=== PATIENT | male | born 1990 | race Caucasian/White ===

== ENCOUNTER 2024-11-15 19:00 | Emergency (ER) | payer OTHER, SELFPAY ==
[2024-11-15 19:15] VITALS: BP 135/82; PULSE 96; RESP 20; TEMP 36.7; O2SAT 98; BMI 29.1
--- NOTE | 2024-11-15 21:10 | PC.NURSE ---
BED AND BREAKFAST OPERATOR note: Alerted by admitting that patient's family brought alcohol into the facilities. Security alerted and made aware. boiler reliner Erica Lemon made aware.
[2024-11-16 01:15] VITALS: BP 120/85; PULSE 68; RESP 10; O2SAT 99
--- NOTE | 2024-11-16 01:26 | ED_ITS ---
HPI - General Adult General Chief complaint: Toxicology Problem Stated complaint: Really bad acholic withdrawals Time Seen by Provider: 11/16/24 01:12 Source: patient Mode of arrival: Wheelchair History of Present Illness HPI narrative: 34-year-old male has upper middle abdominal epigastric area discomfort, regular alcohol use, last drink 2 weeks ago, had concerns that he might be having alcohol withdrawal. No shakiness. No shakiness, no seizure activity. No fevers or chills or diaphoresis. He is not having nausea or vomiting. No black or red stools. No prior endoscopies. No history of known ulcers. No history of known pancreatitis. No blunt injury, trauma, new activities. He has not feel feverish. No painful or frequent urination. Denies chest pain or shortness of breath. He is planning on talking to [facility] alcohol rehab Services on Friday tomorrow. He desires to stop drinking alcohol. Related Data Previous Rx's ?Medication ?Instructions ?Recorded omeprazole 20 mg capsule,delayed 20 mg PO DAILY upper abdominal 11/16/24 release pain 30 days #30 caps Allergies Allergy/AdvReac Type Severity Reaction Status Date / Time No Known Drug Allergies Allergy Verified 11/15/24 19:14 Patient History tobacco type: smokeless tobacco Alcohol type: beer and hard liquor Exam Narrative Exam Narrative: GENERAL: Well-developed patient, in mild distress. HEAD: Atraumatic. Normocephalic. EYES: Pupils equal round and reactive. Extraocular motions intact. No scleral icterus. No injection or drainage. ENT: Nose without bleeding, purulent drainage. Throat without erythema, tonsillar hypertrophy or exudate. Airway patent. NECK: Trachea midline. Non tender CARDIOVASCULAR: Regular rate and rhythm without murmurs, gallops, or rubs. RESPIRATORY: Clear to auscultation. Breath sounds equal bilaterally. No wheezes, rales, or rhonchi. GASTROINTESTINAL: Abdomen soft, non-tender, nondistended. EXTREMITIES: No edema or joint tenderness. BACK: Nontender without deformity or crepitance. No flank tenderness. NEURO: AOx3. Motor functions grossly nonfocal. SKIN: No rash or erythema of visible areas Initial Vital Signs Initial Vital Signs: Vital Signs Temperature 98.0 F 11/15/24 19:15 Pulse Rate 96 H 11/15/24 19:15 Respiratory Rate 20 11/15/24 19:15 Blood Pressure 135/82 11/15/24 19:15 Pulse Oximetry 98 11/15/24 19:15 Oxygen Delivery Method Room Air 11/15/24 19:15 Course Orders Ordered: ED Orders 11/16/24 01:12 Consult to SURGICAL NURSE - Sonar Subsystem Equipment Operator Urgent 11/16/24 02:17 Complete Blood Count AUTO DIFF Stat Comprehensive Metabolic Panel Stat Ethanol (ETOH) Stat Hepatic (Liver) Panel Stat Magnesium Stat Urine Drug Screen, Rapid Stat Discontinued Medications Famotidine (Famotidine 20 Mg/2 Ml Vial) 20 mg IV NOW ANUP Last Admin: 11/16/24 02:08 Dose: 20 mg Documented By: LEÓN Thiamine HCl 100 mg/ Sodium (Chloride) 101 mls @ 404 mls/hr IV NOW ONE Stop: 11/16/24 01:15 Last Infusion: 11/16/24 02:49 Dose: Infused Documented By: Admin: 11/16/24 02:25 Dose: 404 mls/hr Documented By: LEÓN Sodium Chloride (Normal Saline 0.9%) 1,000 mls @ 1,000 mls/hr IV BOLUS ONE Stop: 11/16/24 02:14 Last Infusion: 11/16/24 03:03 Dose: Infused Documented By: Admin: 11/16/24 02:01 Dose: 1,000 mls/hr Documented By: LEÓN Thiamine HCl 200 mg/ Sodium (Chloride) 102 mls @ 408 mls/hr IV NOW ONE Stop: 11/16/24 02:23 Last Admin: 11/16/24 02:27 Dose: Not Given Documented By: LEÓN Vital Signs Vital signs: Vital Signs - 8 hr 11/16/24 01:15 11/16/24 01:15 11/16/24 01:30 Pulse Rate 68 Respiratory Rate 10 L Blood Pressure 120/85 127/91 H Pulse Oximetry 99 Oxygen Delivery Method 11/16/24 01:30 11/16/24 02:15 11/16/24 02:16 Pulse Rate 80 63 Respiratory Rate 16 14 Blood Pressure 113/75 Pulse Oximetry 98 98 Oxygen Delivery Method 11/16/24 02:16 11/16/24 02:30 11/16/24 02:30 Pulse Rate 59 L 64 Respiratory Rate 12 15 Blood Pressure 121/82 Pulse Oximetry 97 99 Oxygen Delivery Method Room Air Room Air Medical Decision Making Lab Data Lab results reviewed: Yes I reviewed the patient's lab results. Lab results narrative: White blood cell count 7300, hemoglobin 16.5, platelets adequate. Glucose 90. Normal renal function. Normal serum CO2. Normal electrolytes. Normal liver functions. Urine tox screen negative. Ethanol negative. 11/16/24 02:17 11/16/24 02:17 Labs: Lab Results 11/16/24 Range/Units 02:17 WBC 7.3 (4.5-11.0) X10^3/uL RBC 5.27 (4.5-5.9) X10^6/uL Hgb 16.5 (13.5-17.5) g/dL Hct 46.8 (41-53) % MCV 88.8 (80-100) fL MCH 31.4 (26-34) PG MCHC 35.3 (30-36) % RDW 13.4 (11.6-14.8) % Plt Count 272 (150-400) X10^3/uL Neut % (Auto) 62.8 (50-75) % Lymph % (Auto) 25.7 (25-40) % Alcorn % (Auto) 8.9 (3-14) % Eos % (Auto) 1.7 L (2-4) % Baso % (Auto) 0.9 (0-2) % Neut # (Auto) 4600 (5092-4726) /uL Lymph # (Auto) 1900 (8498-2252) /uL Alcorn # (Auto) 600 (0-900) /uL Eos # (Auto) 100 (0-450) /uL Baso # (Auto) 100 (0-100) /uL Sodium 138 (137-145) mmol/L Potassium 3.8 (3.4-5.1) mmol/L Chloride 104 (98-107) mmol/L Carbon Dioxide 24 (22-32) mmol/L BUN 12 (9-20) mg/dL Creatinine 0.81 (0.66-1.25) mg/dL Estimated GFR > 60 (>60) mL/min BUN/Creatinine Ratio 14.8 (6-22) Glucose 90 (70-99) mg/dL Calcium 9.6 (8.4-10.2) mg/dL Magnesium 2.1 (1.6-2.3) mg/dL Total Bilirubin 0.8 (0.2-1.3) mg/dL Conjugated Bilirubin 0.0 (0.0-0.3) md/dL Unconjugated Bilirubin 0.5 (0.0-1.1) mg/dL AST 28 (17-59) IU/L ALT 28 (<50) IU/L Alkaline Phosphatase 53 (38-126) U/L Total Protein 7.5 (6.3-8.2) g/dL Albumin 4.9 (3.5-5.0) g/dL Globulin 2.6 (1.7-4.1) g/dL Albumin/Globulin Ratio 1.9 (1.0-2.8) U Opiates 300ng/mL cut Negative (Negative) Ur Oxycodone Screen Negative (Negative) Urine Methadone Screen Negative (Negative) Ur Barbiturates Screen Negative (Negative) U Tricyclic Antidepress Negative (Negative) Ur Phencyclidine Scrn Negative (Negative) Ur Amphetamines Screen Negative (Negative) U Methamphetamines Scrn Negative (Negative) Ur MDMA Scrn (Ecstasy) Negative (Negative) U Benzodiazepines Scrn Negative (Negative) Urine Cocaine Screen Negative (Negative) U Marijuana (THC) Screen Negative (Negative) Urine pH Normal (Normal) Urine Specific [place] Normal (Normal) Ethyl Alcohol < 10 (<10) mg/dL Ur Creatinine Normal (Normal) MDM Narrative Medical decision making narrative: 34-year-old male awaiting alcohol detox program evaluation through the [facility] tomorrow. Complains of epigastric pain. Minimal tenderness epigastrium. Screening labs unremarkable, no white blood cell count elevation, normal liver functions, lipase normal. Trial of antacid omeprazole. Encouraged to follow up for alcohol detox program tomorrow with the [facility] as planned. Discharged home with friends. Discharge Plan Departure Patient Disposition: Home Clinical Impression: Epigastric abdominal pain, History of alcohol use Activity Restrictions/Additional Instructions: Epigastric upper middle abdominal discomfort, history of alcohol use. Awaiting detox assessment through [facility] services tomorrow Friday. Screening labs unremarkable today. It is possible you have gastritis or inflammation of the stomach wall, or even an ulcer. Trial of antacid. Prescription sent for omeprazole to your pharmacy, though this is available now [id number] without prescription. Avoid alcohol. Avoid use of Motrin, naproxen. Recheck epigastric pain symptoms with your regular doctor if not improving in the next few days on omeprazole. Consider upper endoscopy if symptoms persist or they recur after treatment. Follow up with alcohol rehab services as planned. Return earlier to this/nearest emergency department for any change worsening symptoms or any concerns prior. Prescriptions: New omeprazole 20 mg capsule,delayed release(DR/EC) 20 mg PO DAILY 30 Days Qty: 30 0RF Stand Alone Forms: Patient Portal/API
[2024-11-16 01:30] VITALS: BP 127/91; PULSE 80; RESP 16; O2SAT 98
[2024-11-16] MEDS: SODIUM CHLORIDE 0.9% 1,000 ML 1000 ML IV (02:01)
[2024-11-16] MEDS: FAMOTIDINE 20 MG/2 ML VIAL IV (02:08)
[2024-11-16 02:15] VITALS: PULSE 63; RESP 14; O2SAT 98
[2024-11-16 02:16] VITALS: BP 113/75; PULSE 59; RESP 12; O2SAT 97
[2024-11-16] MEDS: THIAMINE 100 MG in SODIUM CHLORIDE 0.9% 100 ML 404 MG IV (02:25)
[2024-11-16 02:28] LABS: Add Manual Diff / Slide Review NO; Basophils Absolute Auto 100 /uL (0-100); Basophils Percent Auto 0.9 % (0-2); Eosinophils Absolute Auto 100 /uL (0-450); Eosinophils Percent Auto 1.7 % (2-4); Hematocrit 46.8 % (41-53); Hemoglobin 16.5 g/dL (13.5-17.5); Lymphocytes Absolute Auto 1900 /uL (1100-4500); Lymphocytes Percent Auto 25.7 % (25-40); Mean Corpuscular HGB Conc 35.3 % (30-36); Mean Corpuscular Hemoglobin 31.4 PG (26-34); Mean Corpuscular Volume 88.8 fL (80-100); Monocytes Absolute Auto 600 /uL (0-900); Monocytes Percent Auto 8.9 % (3-14); Neutrophils Absolute Auto 4600 /uL (1500-7000); Neutrophils Percent Auto 62.8 % (50-75); Platelet Count 272 X10^3/uL (150-400); Red Blood Cell Count 5.27 X10^6/uL (4.5-5.9); Red Cell Distribution Width 13.4 % (11.6-14.8); White Blood Cell Count 7.3 X10^3/uL (4.5-11.0)
[2024-11-16 02:30] VITALS: BP 121/82; PULSE 64; RESP 15; O2SAT 99
[2024-11-16 02:37] LABS: Alanine Aminotransferase 28 IU/L (<50); Albumin 4.9 g/dL (3.5-5.0); Albumin Globulin Ratio 1.9 (1.0-2.8); Alkaline Phosphatase 53 U/L (38-126); Aspartate Aminotransferase 28 IU/L (17-59); BUN Creatinine Ratio 14.8 (6-22); Bilirubin Total 0.8 mg/dL (0.2-1.3); Bilirubin Unconjugated 0.5 mg/dL (0.0-1.1); Blood Urea Nitrogen 12 mg/dL (9-20); Calcium 9.6 mg/dL (8.4-10.2); Carbon Dioxide 24 mmol/L (22-32); Chloride 104 mmol/L (98-107); Estimated Glomerular Filt Rate > 60 mL/min (>60); Ethanol (ETOH) < 10 mg/dL (<10); Globulin 2.6 g/dL (1.7-4.1); Glucose 90 mg/dL (70-99); HEMOLYSIS < 15 (0-50); Magnesium 2.1 mg/dL (1.6-2.3); Potassium 3.8 mmol/L (3.4-5.1); Sodium 138 mmol/L (137-145); Total Protein 7.5 g/dL (6.3-8.2)
[2024-11-16 02:38] LABS: UR Morphine/Opiate cutoff 300 Negative (Negative); Ur Creatinine Normal (Normal); Ur Specific Gravity Normal (Normal); Urine Amphetamines Negative (Negative); Urine Barbiturates Negative (Negative); Urine Benzodiazepines Negative (Negative); Urine Cocaine Negative (Negative); Urine MDMA Negative (Negative); Urine Methadone Negative (Negative); Urine Methamphetamines Negative (Negative); Urine Oxycodone Negative (Negative); Urine Phencyclidine Negative (Negative); Urine Tetrahydrocannabinol Negative (Negative); Urine Tricyclic Antidepressant Negative (Negative); Urine pH Normal (Normal)
== END 2024-11-16 03:04 | disposition home or self-care (01) ==
PROVIDERS: Emergency Provider Emergency Medicine
DX: R10.13 Epigastric pain (principal); F10.90 Alcohol use, unspecified, uncomplicated
CPT/HCPCS: 80053; 80076; 80305; 80320; 83735; 85025; 96365; 96375; 99283; 99284